=== PATIENT | male | born 1965 ===

== ENCOUNTER 2017-06-24 06:27 | Inpatient (IN) | payer OTHER ==
[2017-06-09 10:36] VITALS: BMI 28.5
[2017-06-24] MEDS ORDERED: Absorbable Gelatin Sponge Size 100 ONE (07:29)
[2017-06-24] MEDS ORDERED: Thrombin Topical 5,000 IU Spray Kit ONE (07:30)
[2017-06-24] MEDS ORDERED: Propofol 10 mg/ml Inj (20 ML) ONE ×6 (07:30→11:28)
[2017-06-24] MEDS ORDERED: Lidocaine 1% w Epi 1:100,000 Inj ONE (07:30)
[2017-06-24] MEDS ORDERED: Midazolam 2 MG/2 ML VIAL ONE (07:31)
[2017-06-24] MEDS ORDERED: Succinylcholine 200 mg/10 ml Inj IV ONE (07:31)
[2017-06-24] MEDS ORDERED: Desflurane Inhalation Anesthetic Liq (240 ml) ONE (07:41)
[2017-06-24] MEDS ORDERED: Sevoflurane - Inhalation Anesthetic Liq (250 ml) ONE (07:41)
[2017-06-24] MEDS ORDERED: Heparin 10,000 Units/ml ONE ×2 (07:55→08:13)
[2017-06-24] MEDS ORDERED: Rocuronium 10 mg/ml (5 ml) ONE (08:32)
[2017-06-24] MEDS ORDERED: Bupivacaine 0.5% Inj(30mL) ONE (12:41)
[2017-06-24] MEDS ORDERED: Thrombin Topical 20,000 Intl Units Spray Kit TOP ONE (12:43)
[2017-06-24] MEDS ORDERED: Liquid Adhesive TOP ONE (13:10)
[2017-06-24] MEDS ORDERED: Lactated Ringer's 1,000 ML IV SCH (13:31)
[2017-06-24] MEDS ORDERED: HYDROmorphone 0.5 mg/0.5 ml ISec IVP PRN (13:31)
[2017-06-24] MEDS: HYDROmorphone 0.2 mg/ml (25ml) 25 ML IV PRN ×2 (16:17→22:35)
[2017-06-24] MEDS: Dextrose 5%/0.45% NS 1,000 ML IV SCH ×2 (16:25→23:45)
--- NOTE | 2017-06-24 17:19 | RAD ---
PROCEDURE: Fluoroscopy up to 1 hour HISTORY: FIXATION FUSION POSTERIOR INTERBODY L-4 - S-1 COMPARISON: TECHNIQUE: Fluoroscopy up to 1 hour. 2 minutes and 26 seconds of fluoro time. Two images submitted FINDINGS: Pedicle screws and rods are seen at L3 L4 and L5. Intradiscal devices are also seen as well as a laminectomy. IMPRESSION: As above
[2017-06-24] MEDS ORDERED: Pneumococcal 23-Valent Vaccine IM ONE (22:13)
[2017-06-25] MEDS: Dextrose 5%/0.45% NS 1,000 ML IV SCH ×2 (02:25→12:51)
--- NOTE | 2017-06-25 05:59 | CP.PCM.PN ---
Subjective - Date & Time of Evaluation Date of Evaluation: 06/25/17 Time of Evaluation: 05:57 - Subjective Subjective: S:Patient was seen at bedside. Because he had temp of 101*F, post operatively. Has no other complaints. Received Ancef post op. Medical record was reviewed. O:Stable. Not in acute distress. LUNGS: Normal breathing pattern. A:Post op fever. P: Nurse will call PMD. Tylenol as ordered. 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
[2017-06-25 08:39] LABS: URINE BILIRUBIN NEGATIVE (NEGATIVE); URINE BLOOD MODERATE (NEGATIVE); URINE GLUCOSE (UA) NEGATIVE (NEGATIVE); URINE KETONE NEGATIVE (NEGATIVE); URINE LEUKOCYTE ESTERASE NEGATIVE Leu/uL (NEGATIVE); URINE PROTEIN TRACE mg/dL (<30 mg/dL); URINE UROBILINOGEN 0.2 E.U./dL (<1 E.U./dL)
[2017-06-25 08:40] LABS: URINE APPEARANCE CLEAR (CLEAR); URINE COLOR YELLOW (YELLOW)
[2017-06-25 08:50] VITALS: RESP 20
[2017-06-25 08:59] LABS: URINE BACTERIA TRACE (NEG); URINE EPITHELIAL CELLS 0 - 2 /hpf (0-5)
[2017-06-25] MEDS: HYDROmorphone 0.2 mg/ml (25ml) 25 ML IV PRN (09:53)
[2017-06-25 11:31] LABS: ADD MANUAL DIFF? NO
--- NOTE | 2017-06-25 11:35 | CP.PCM.PN ---
Subjective - Date & Time of Evaluation Date of Evaluation: 06/25/17 Time of Evaluation: 11:32 - Subjective Subjective: SPINE - POD #1 Pt resting in bed. States he stood earlier w PT. Hasn't felt R leg pain as pre- op. Voiding via chan. + flatus. Taking po liquids. Using INSTRUCTOR KINDERGARTEN, VSS. Temp 101. Moves LE's actively. Neuro grossly intact. Plan: Cont to mobilize as tolerated. Use incentive spirometry. Change to oral analgesics in am. Consider d/c chan. Advance to reg diet. Objective - Vital Signs/Intake and Output Vital Signs (last 24 hours): Temp Pulse Resp BP Pulse Ox 101 F H 99 H 20 133/81 92 L 06/25/17 08:00 06/25/17 08:00 06/25/17 08:00 06/25/17 08:00 06/25/17 08:00 Intake and Output: 06/25/17 06/25/17 06:59 18:59 Intake Total 1005 1225 Output Total 1999 Balance -995 1225 - Medications Medications: Current Medications Acetaminophen (Tylenol 325mg Tab) 650 mg PO Q4H PRN PRN Reason: Fever >100.4 F Last Admin: 06/25/17 06:12 Dose: 650 mg Hydromorphone HCl (Dilaudid) 0.5 mg IVP Q15M PRN PRN Reason: Pain, moderate (4-7) Hydromorphone HCl (Dilaudid 0.2 Mg/Ml Prototype Model Maker) 25 mls @ 0 mls/hr IV PRN PRN; Protocol PRN Reason: INSTRUCTOR KINDERGARTEN PER MD ORDER Stop: 06/25/17 13:34 Last Admin: 06/25/17 09:53 Dose: 0.2 mls/hr Dextrose/Sodium Chloride (Dextrose 5%/0.45% Ns 1000 Ml) 1,000 mls @ 100 mls/hr IV .Q10H [facility] Last Admin: 06/25/17 02:25 Dose: 100 mls/hr Ondansetron HCl (Zofran Inj) 4 mg IVP Q6H PRN PRN Reason: Nausea/Vomiting
[2017-06-25 11:41] LABS: GRAN # 5.35 (1.4-6.5); HEMATOCRIT 36.8 % (42.0-52.0); LYMPH # 1.6 (1.2-3.4); LYMPH % 20.5 % (22.0-35.0); MEAN CELL VOLUME 86.4 fl (80.0-105.0); MEAN CORPUSCULAR HEMOGLOBIN 29.6 pg (25.0-35.0); MEAN CORPUSCULAR HGB CONC 34.2 g/dl (31.0-37.0); MEAN PLATELET VOLUME 9.1 fl (7.0-11.0); MONO # 0.9 (0.1-0.6); MONO % 11.5 % (1.0-6.0); PLATELET COUNT 259 10^3/uL (120.0-450.0); WHITE BLOOD COUNT 7.9 10^3/ul (4.5-11.0)
[2017-06-25] MEDS: Oxycodone/Acetaminophen 5/325 mg Tab PO PRN ×2 (18:00→22:45)
[2017-06-25] MEDS: oxyCODONE 20 mg ER Tab (oxyCONTIN) PO SCH (21:12)
--- NOTE | 2017-06-25 21:16 | OP ---
PROCEDURE DATE: 06/24/2017 PREOPERATIVE DIAGNOSIS: Disk herniation and derangement with radiculopathy, L4-L5 and L5-S1. POSTOPERATIVE DIAGNOSIS: Disk herniation and derangement with radiculopathy, L4-L5 and L5-S1. PROCEDURES: 1. Posterior lumbar interbody fusion, L4-L5 and L5-S1. 2. Posterolateral fusion, L4-S1. 3. Segmental spinal instrumentation. 4. Use of intervertebral devices. 5. Use of autograft by means of bone marrow aspiration. CO-SURGEONS: Darline Bruce ANESTHESIA: General endotracheal tube intubation. DESCRIPTION OF PROCEDURE: The patient was brought into the operating room and general anesthesia was achieved. Intravenous antibiotics were administered and spinal cord monitoring leads were placed throughout the patient's body. Real time monitoring was done by epitaxial reactor technician in the room. Remote monitoring done by a physician as well. Sequential compression boots were placed to each of the patient's legs and after the antibiotics were administered, a Bucio catheter was inserted. The patient was then transferred onto the operating table and placed prone on a Thiago frame keeping his abdomen free from pressure anteriorly. Care was taken to protect the elbows and knees from pressure points. A sterile drape was used to seal the patient's perineal region from the operative field and the patient's back was scrubbed and then sterilely prepped and draped. Level of the incision was noted under fluoroscopy and infiltrated with lidocaine with epinephrine. Incision was made sharply through the skin taken down to subcutaneous tissues in sharp and blunt dissection. Hemostasis was achieved using electrocautery. The fascia was divided and stripped laterally off the spinous processes and lamina out to the level of the transverse processes at L4-L5 along with the sacral ala. It should be noted that the patient appeared to have a residual disk in the sacral region, which we labelled S1 and S2 and therefore we called 4-5 and 5-1 corresponded to his preoperative studies. It should be noted he also had a spondylolisthesis at L4 on L5, grade I. Soft tissue attachments were cleared off the intralaminar spaces on each side using electrocautery and Carlin elevators. Confirmatory fluoroscopic view showed that we were at the appropriate levels. A Steff bone cutter was used to remove the spinous processes and a Leksell rongeur used to thin down the lamina in the midline. Laminectomy was then carried out in a caudad-cephalad fashion using Kerrison rongeurs. This is done first in centrally and then laterally to each side taking care to protect the thecal sac with cottonoids. It was cut out laterally enough at the 4-5 and 5-1 levels that we could pass a broach to indicate enough room to be able to pass the intervertebral devices. Hemostasis was achieved using bipolar cautery as well as thrombinated Gelfoam powder. A needle was placed in disk and again it was confirmed with fluoroscopic views it was at the appropriate levels. At that time, a trocar was placed in the posterior right ileum and 120 mL of bone marrow aspirate was obtained. This was sterilely passed off to the epitaxial reactor technician who processed it to the harvest system. The collected mesenchymal stem cells was then returned to the OR table and used to process through IC Chamber bone as well as soak strips and cubes of hydroxyapatite CONFORMED sponge. Thrombinated Gelfoam powder was used for hemostasis at the donor site. The patient's laminar bone was then combined with the IC Chamber bone and Optium putty to create a bone grafting substrate. We then turned our attention for the interbody fusion part of the procedure. The thecal sac was gently retracted and the annulus incised on the right side at L5-S1. A large herniation was noted on the right side consistent with preoperative studies. It was difficult to retract it first, but once disk material was removed from the right and centrally, it was much easier to retract the neural structures. Endplate daniel were used from size 8 up to including size 11 along with the ring and spoon curettes until all the tissue appeared to have been removed from the disk space from the right side. We then moved to the left side where the thecal sac was retracted and the annulus incised on the left and again the endplate daniel along with the ring and spoon curettes and a pituitary rongeur were used to remove any remaining tissues. The bone grafting substrate along with some of the marrow soaked cubes of CONFORM were packed into the disc space. A 9 x 11 graft package was then tamped into place and countersunk. We came back to the right side and inspected for any remaining disk material and then bone grafting substrate and the CONFORM cubes are packed in the disk space and another 9 x 11 graft package was tamped into place and countersunk. I then moved up to the 4-5 level with similar fashion, the annulus was incised on the left side, disk material removed with pituitary rongeur as well as the endplate daniel up to and including a size 11 once more. Ring and spoon curettes were used again. We the moved to the right side and again the annulus was incised and the remaining disk material removed with the endplate daniel along with the pituitary rongeurs and the ring and spoon curettes. Again, marrow soaked CONFORM cubes with the bone grafting substrate was packed into the disk space along with another graft pack 9 x 11 cage. We then finished it on the left side where again we inspected for any remaining disk material on the piece that was found centrally which was removed. The grafting substrate along with the CONFORM Cubes and subsequently a 9 x 11 cage packed with the graft was tamped into place. We then proceeded with a posterolateral fusion. High speed drill was used to decorticate the transverse processes of L4 and L5 along with the sacral ala and the 4-5 and 5-1 facet joints. Under fluoroscopic guidance, a drill was used to create an entry point for the right L4 pedicle screw. Gearshift tool was used to create a channel through the pedicle and the bone integrity confirmed with a ball tip probe. A 6.0 x 40 mm speeding screw was inserted. Stimulation of the gearshift tool along with the shank and top of the screw revealed no electrophysiological abnormalities. In similar fashion, the fluoroscopy was used to locate the entry point on the left side to the L4 screw and the drill, gearshift tool, both were appropriately used and another 40 mm x 6.0 screw inserted. Again stimulation revealed no abnormalities. We then moved down to the L5 level. On left side under fluoroscopic guidance, the drill and gear shift tool used to create entry point channel through the pedicle and the bone integrity was confirmed with the ball tip probe. Another 6.0 x 40 mm screw was inserted. A similar technique was used on the right side and again another 40 x 6.0 screw was inserted. Stimulation of the gearshift tool and shank and top of each screw on each side again revealed no electrophysiologic abnormalities. We then moved to the sacral screws. The entry point was located under fluoroscopy and lined up as best as we could with the previously superiorly placed 2 screws. The gearshift tool was then used to create the channel for the screw and the bone integrity confirmed and a 7.0 x 35 mm screw was inserted. Similar technique was used on the left side in terms of locating the entry point and lining it up with the previously placed screws and then the gearshift tool and ball tip probe used and another 35 x 7.0 mm speeding screws were inserted. Again stimulation revealed no abnormalities. A 65 mm rods were connected with 3 screws on the left and a 75 mm mike used to connect the 3 screws on the right. Caps were applied. These were appropriately tightened and torqued. The midline was irrigated and inspected for any debris. Thrombinated Gelfoam powder and bipolar cautery was used for hemostasis. A large piece of solid Gelfoam was used to cover the exposing neural alignments. An A5 CrossLink was then used to connect the 2 rods to add rotational stability. The remaining strips of CONFORM sponge as well as the remaining bone grafting substrate was then packed laterally to bridge the transverse processes to the sacral ala on each side. Final AP and lateral fluoroscopic view showed good position of the hardware and intervertebral devices. The wound was then closed in layers with interrupted sutures of 0 Vicryl for the muscle and the fascia. The subcutaneous tissue was copiously irrigated with antibiotic solution and 30 mL of 0.5% Marcaine injected in the paraspinal muscles to help with postoperative pain relief. The subcutaneous tissue was approximated using interrupted sutures of 2-0 Vicryl and the skin was approximated with a running subcuticular suture of 3-0 Monocryl. Steri-Strips and sterile dressing was applied. The patient was gently transferred back on to his bed in the supine position. He is awake and extubated. He was taken to the recovery room in stable condition. He tolerated the procedure well. Estimated blood loss is 400 mL. He received 220 mL of crystalloid along with 125 mL pack from the Cell [facility]. Urine output is 300 mL. He was actively moving his extremities upon his arrival to the recovery room and no permanent electrophysiological abnormalities were noted at the completion of the case. Kenny Bruce MD [email or web address]
[2017-06-26] MEDS: Oxycodone/Acetaminophen 5/325 mg Tab PO PRN ×3 (05:00→16:25)
[2017-06-26] MEDS: oxyCODONE 20 mg ER Tab (oxyCONTIN) PO SCH ×2 (10:01→21:00)
--- NOTE | 2017-06-26 15:07 | CP.PCM.PN ---
Subjective - Date & Time of Evaluation Date of Evaluation: 06/26/17 Time of Evaluation: 15:05 - Subjective Subjective: POD 2 Afeb doing well walked with rehab 5/5 bles p cont p/o care Objective - Vital Signs/Intake and Output Vital Signs (last 24 hours): Temp Pulse Resp BP Pulse Ox 99.8 F H 110 H 20 121/76 94 L 06/26/17 08:14 06/26/17 08:14 06/26/17 08:14 06/26/17 08:14 06/26/17 08:14 Intake and Output: 06/26/17 06/26/17 06:59 18:59 Intake Total 3540 Output Total 1460 Balance 2080 - Medications Medications: Current Medications Acetaminophen (Tylenol 325mg Tab) 650 mg PO Q4H PRN PRN Reason: Fever >100.4 F Last Admin: 06/25/17 16:07 Dose: 650 mg Dextrose/Sodium Chloride (Dextrose 5%/0.45% Ns 1000 Ml) 1,000 mls @ 100 mls/hr IV .Q10H [facility] Last Admin: 06/25/17 12:51 Dose: 100 mls/hr Ondansetron HCl (Zofran Inj) 4 mg IVP Q6H PRN PRN Reason: Nausea/Vomiting Oxycodone HCl (Oxycontin Extended Release Tab) 20 mg PO Q12 [facility] Last Admin: 06/26/17 10:01 Dose: 20 mg Oxycodone/Acetaminophen (Percocet 5/325 Mg Tab) 2 tab PO Q4H PRN PRN Reason: Pain, moderate (4-7) Stop: 06/28/17 16:20 Last Admin: 06/26/17 12:15 Dose: 2 tab - Labs Labs: 06/25/17 11:20
[2017-06-27] MEDS: Dextrose 5%/0.45% NS 1,000 ML IV SCH (04:53)
[2017-06-27 08:08] VITALS: BP 129/75; PULSE 92; TEMP 99.6; O2SAT 95
[2017-06-27] MEDS: oxyCODONE 20 mg ER Tab (oxyCONTIN) PO SCH (10:12)
--- NOTE | 2017-06-27 20:34 | OP ---
PROCEDURE DATE: 06/24/2017 PREOPERATIVE DIAGNOSIS: Lumbar disc herniation at L4-L5 and L5-S1. POSTOPERATIVE DIAGNOSIS: Lumbar disc herniation at L4-L5 and L5-S1. PROCEDURE: L4-L5 and L5-S1 discectomy, decompression, interbody fusion, segmental pedicle screw fixation of the posterolateral fusion with iliac autograft. SURGEON: Luis Gregorio MD CO-SURGEON: Kenny Bruce MD TYPE OF ANESTHESIA: General endotracheal. ESTIMATED BLOOD LOSS: 300 mL, 125 returned by [facility]. COMPLICATIONS: None. JUSTIFICATION: The patient is status post a significant injury and ever since then, he comes up with severe low back pain with radicular pain predominantly on the right side. Imaging records of the MRI documented significant disc derangement with extruded discs eccentric to the right above L4-L5 and L5-S1 level. The patient failed rather extensive conservative treatment. He was offered possibility of operative intervention via discectomy, interbody fusion and segmental fixation. The nature of this procedure, rationale behind it, alternatives, potential risks and complications, realistic chance of success, recovery time were discussed with him at length. All his questions were answered. He fully understood all the above and elected to proceed as offered. DESCRIPTION OF PROCEDURE: The patient was taken to the operating room. He was hooked up to the electrophysiological monitoring device. He was carefully intubated and the patient was placed on the OR table in prone position on a Thiago frame with maximal flexure just to get his belly off the table at approximately L5. Care was taken to protect his face, eyes, endotracheal tube and all bony prominences. The entire low back region was then scrubbed with acetone scrub, painted and draped in the usual sterile manner. Incision localized with lateral fluoroscopy tracing out the overlying spinous process from L3 down to the sacrum. After prepping and draping the incision with Betadine and using 10 blade it was now carried down to the level of the fascia. Bovie cautery was used to strip the paraspinous muscles off the spinous processes, lamina at L4 to the sacrum, confirmatory x-ray was taken. Of note, is that the patient did have a residual S1 and S2 disc that we will continue to refer at that level. Thus the two typical and large sized disc spaces with the herniations are referred to as L4-L5 and L5-S1 respectively. The closure was then widened out down laterally bilaterally to expose the entire L4-L5 and L5-S1 facet, the sacral ala and the transverse processes at the two levels above bilaterally. Bleeding was controlled throughout with bipolar and Bovie cautery with some thrombinated powder gel. When the closure was complete, the retractors were relaxed. A 5-gauge trocar was inserted percutaneously into the right superior and posteriorly iliac crest. Approximately 120 mL of bone marrow was then aspirated. These were then spun down to obtain the bone marrow mesenchymal cells which were used to cope the further products of decompression. At this point, decompression was begun by removing the top of this spinous process at the S1, the entire spinous site and the inferior 4. This was all done with a Kerrison rongeur and a Leksell. Leksell was used to further thin down the lamina. This bone was then later prepared and saved for use in the fusion. Various sized Kerrison rongeurs were then used to perform a central laminectomy from the top of the sacrum all the way through the inferior two-thirds of L4 lamina. The laminectomy was then widened laterally bilaterally with the use of high speed drill and various sized Kerrison rongeurs. Of note, particularly on the right side, the lateral recesses and the foramina were markedly tight which inquired significant amount of intermittent fine drilling and the use of a 2 mm Kerrison to adequately decompress the lateral thecal sac as well as the exiting nerve roots. Foraminotomies were then performed laterally bilaterally, completely ensuring that the exiting L4 and L5 nerve roots were completely decompressed. The S1 nerve root similarly were traced down their foramen, although it is not as severely compressed. We then widely exposed the lateral discs at both levels, some of the epidural veins were coagulated with bipolar cautery. At this point, we began the discectomy at L5-S1. The right S1 nerve root gently retracted and the disc was then excised and grossly emptied of disc material with the use of various size and shaped curettes, 8 through 11 mm daniel/scrappers were then used to remove all further soft tissue and begin decortication. The right central herniation was removed with the use of a down biting curette and straightened up by the pituitary rongeurs to remove that impacting herniation. This identical process was then performed on the left side. Large curettes were used to decorticate all the end plate above and below bilaterally. We then packed some bone grafting material liberally into the disc space. This included chopped up parts of decompression and additional bone matrix proteins, additional allografts, as well as mesenchymal marrow impregnated hydroxyapatite sponges. We then tapped in the appropriate size fusion cage which was a 9 x 11 mm carbon fiber fusion cage filled with all the above reference material. This was dabbed into the interspace until it was well seated and countersunk and then the identical implant placed on the contralateral side. Visual inspection of the lateral fluoroscopy confirmed excellent position of both of these implants. Attention was then turned to the L4-L5 level, this time beginning on the left side. We gently retracted the L5 nerve root immediately. The disc was incised and grossly emptied of disc material using curettes and pituitary rongeurs. Once again 8 through 11 mm scrapers were used. The endplates above and below decorticated. The identical procedure performed on the right side again. The herniation on this side was removed in a similar fashion as described above. Again, we packed all bone grafting material to this space followed by placement of the 9 x 11 mm fusion cages. This was again done bilaterally. Again, visual inspection and fluoroscopy confirmed acquisition of the implant. At this point, we turned our attention to the posterolateral fusion. We used a high speed drill to decorticate the lateral gutters. This included the transverse processes of the L4-L5, the lateral pars, lateral facet, inter facet and the sacral ala bilaterally. We then turned our attention to the placement of pedicular screw. The technique was used identifying the particular heads both visually and fluoroscopically, drilling the cortical bone, passing a gear shift was used to create a channel through the pedicle into the vertebrae, using a ball tip probe to sound the passage way to ensure that bone was completely surrounding the passage way throughout and then placed the appropriate screw and additionally, an electric probe was used to stimulate the gear shift and the screws throughout, while monitoring lower extremity EMG. Using this technique, 6.0 diameter 40 mm screws were placed bilaterally at L4 and L5 and 35 mm length 7.0 diameter screws placed bilaterally at S1. No screw elicited any EMG activity above the level of 20 milliamps. Both lateral and AP x-rays confirmed excellent position of all six screws. At this point, we placed the appropriate sized titanium rods into the three screw head structures on both sides. These were then had locking nuts placed which were then somewhat wrenched tight and finally we placed the appropriate sized cross connecter between L4 and L5 and its three set screws points to a wrench tight. Final lateral and AP x-ray confirmed superb position of the entire construct, that is the six pedicular screws, the 2 locking rods and the cross connecter as well as all four interbody implants. We then placed all remaining bone grafting material as described above liberally packing it into the posterolateral gutters lateral to the rods to achieve the posterolateral fusion. At this point, we ensured that there was no foreign matter or bone material, etc,. anywhere in and around the peridural space. This was gently irrigated with antibiotic solution, a layer of powdered, followed by a layer of solid Gelfoam placed in the posterior epidural space. Retractors were removed. Some small muscle bleeders were coagulated. The muscles were reapproximated using interrupted 0-Vicryl, the fascia closed using a tight interrupted 0-Vicryl stitch. The fascia was then copiously irrigated with antibiotic solution. The subcutaneous closed using interrupted inverted 2-0 Vicryl. The skin was then closed with a running 3-0 Monocryl with Benzoin and Steri-Strips. A self-adhering Telfa dressing was then placed. The patient was then turned back onto supine position on a stretcher, joints moving in all groups in both lower extremities with excellent strength on his way to recovery room. All counts were correct. There were no complications. Other than some short bursts of EMG activity while particularly removing the disc on the right side on both levels, neurophysiologically remained stable over the procedure. There were no complications. Counts were correct. Luis Gregorio MD
== END 2017-06-27 17:30 | disposition home or self-care (01) | DRG 460 ==
LOC: SDAINP 06:27 → EDSTATUS 07:30 → 5RNO 14:48
PROVIDERS: ADMIT Orthopaedic Surgery Orthopaedic Surgery of the Spine; ATTEND Neurological Surgery
PROC: 0SG30A1 (ICD-10-PCS; 2017-06-24)
PROC: 0SG1071 Fusion of 2 or more Lumbar Vertebral Joints with Autologous Tissue Substitute, Posterior Approach, Posterior Column, Open Approach (ICD-10-PCS; 2017-06-24)
PROC: 0QH004Z Insertion of Internal Fixation Device into Lumbar Vertebra, Open Approach (ICD-10-PCS; 2017-06-24)
PROC: 0QU007Z Supplement Lumbar Vertebra with Autologous Tissue Substitute, Open Approach (ICD-10-PCS; 2017-06-24)
PROC: 0ST20ZZ Resection of Lumbar Vertebral Disc, Open Approach (ICD-10-PCS; 2017-06-24)
PROC: 0ST40ZZ Resection of Lumbosacral Disc, Open Approach (ICD-10-PCS; 2017-06-24)
PROC: 07DR3ZZ Extraction of Iliac Bone Marrow, Percutaneous Approach (ICD-10-PCS; 2017-06-24)
PROC: 4A11X4G Monitoring of Peripheral Nervous Electrical Activity, Intraoperative, External Approach (ICD-10-PCS; 2017-06-24)
PROC: 0SG10A1 (ICD-10-PCS; principal; 2017-06-24 07:30)
DX: M51.16 Intervertebral disc disorders with radiculopathy, lumbar region (principal); M43.16 Spondylolisthesis, lumbar region; R50.82 Postprocedural fever